=== PATIENT | male | born 1935 ===

== ENCOUNTER 2019-04-09 10:26 | Outpatient (CLI) | payer MEDICARE ==
--- NOTE | 2019-04-09 12:27 | XRay Report ---
METASTATIC BONE SURVEY HISTORY: Monoclonal gammopathy COMPARISON: None FINDINGS: Multiple images of the axial and proximal appendicular skeleton are presented. Mild osteope mitzy is suspected. Multilevel degenerative changes present throughout the spine. No abnormal blastic o r lytic bony lesion is identified. No acute fractures appreciated. Signer Name: Kang Vernon Jr, MD Signed: 04/09/2019 12:23 PM Workstation Name: [id number]
== END 2019-04-09 10:27 | disposition home or self-care (01) ==
LOC: SPVIMAG 10:26
PROVIDERS: ATTEND Internal Medicine Hematology & Oncology
DX: M47.819 Spondylosis without myelopathy or radiculopathy, site unspecified (principal); D47.2 Monoclonal gammopathy
CPT/HCPCS: 77074